=== PATIENT | male | born 1975 | race Asian ===

== ENCOUNTER 2017-01-09 06:41 | Emergency (ER) | payer OTHER ==
[2017-01-09 07:14] VITALS: TEMP 99.6; BMI 21.6
--- NOTE | 2017-01-09 07:16 | PDOC ---
Attending Attestation - Resident Resident Name: Martín Tai - HPI HPI: 01/09/17 08:49 pt presents to the ED complaining of generalized malaise, R hand and L calf pain. Febrile yesterday. - Physicial Exam PE: 01/09/17 09:00 Physical exam is completely unremarkable. No external signs of infection at sites of the patient's pain. - Medical Decision Making 01/09/17 09:50 Pt presents to the ED complaining of pain in his hand and leg and mild, pleuritic chest pain. Well appearing and afebrile in the ED today. Low risk for cardiac disease. Will check labs, give pain control and IV hydration and reassess.
[2017-01-09] MEDS ORDERED: KETOROLAC TROMETHAMINE 30 MG/1 ML VIAL IVPUSH ONE (07:43)
[2017-01-09] MEDS ORDERED: SODIUM CHLORIDE 0.9% 1000 ML INFUS.BAG IV ONE (07:43)
--- NOTE | 2017-01-09 07:43 | PDOC ---
History of Present Illness - General Chief Complaint: Chest Pain Stated Complaint: PAIN TO CHEST Time Seen by Provider: 01/09/17 07:11 History Source: Patient Exam Limitations: No Limitations - History of Present Illness Initial Comments: 01/09/17 07:40 The patient is 41M with a PMH of hypercholesterolemia who presents to the ED with pain in his L leg and R hand for 2 days. He also complains of chest pain since 3 pm yesterday. The chest pain is L sided, does not radiate, tender to palpation, not associated with diaphoresis or vomiting. His leg and hand pain were of sudden onset, and he describes it as a tight feeling, and painful to palpation. The patient has also been complaining of a fever last night at 100.7. He states he has taken motrin every 6 hours and feels slightly better. He has no sick contacts and has never experienced this before. He has no history of recent stasis, no cancer, and is a non-smoker. ROS+: nausea, fever, chills, headache, SOB ROS-: diaphoresis, vomiting, sick contacts, diarrhea, constipation, dysuria, abdominal pain, cough Allergies: Seasonal Surgeries: none Social: Does not smoke, drink, use recreational drugs Past History - Past Medical History Allergies/Adverse Reactions: Allergies Allergy/AdvReac Type Severity Reaction Status Date / Time No Allergy Information Allergy Verified 11/03/15 12:54 Available Home Medications: Ambulatory Orders NK [No Known Home Medication] 01/09/17 - Immunization History Immunization Up to Date: Yes - Psycho/Social/Smoking Cessation Hx Anxiety: No Suicidal Ideation: No Smoking History: Unknown if ever smoked Information on smoking cessation initiated: No Hx Alcohol Use: No Drug/Substance Use Hx: No Substance Use Type: None Review of Systems - Review of Systems Able to Perform ROS?: Yes Is the patient limited [place] proficient: No Constitutional: Yes: Chills, Fever. No: Diaphoresis Respiratory: Yes: Shortness of Breath. No: Cough, Productive cough Cardiac (ROS): Yes: Chest Pain. No: Palpitations ABD/GI: Yes: Nausea. No: Constipated, Diarrhea, Vomiting : No: Dysuria, Hematuria Integumentary: No: Lesions, Rash Neurological: Yes: Headache *Physical Exam - Vital Signs Last Vital Signs Temp Pulse Resp BP Pulse Ox 99.6 F 77 16 96/63 98 01/09/17 07:11 01/09/17 07:11 01/09/17 07:11 01/09/17 07:11 01/09/17 07:11 - Physical Exam General Appearance: Yes: Nourished, Appropriately Dressed, Mild Distress HEENT: negative: Scleral Icterus (R), Scleral Icterus (L) Neck: negative: Stridor Respiratory/Chest: positive: Chest Tender, Lungs Clear, Normal Breath Sounds. negative: Respiratory Distress, Accessory Muscle Use, Labored Respiration, Wheezing Cardiovascular: positive: Regular Rhythm, Regular Rate, S1, S2 Gastrointestinal/Abdominal: positive: Flat, Soft. negative: Tender, Tenderness Musculoskeletal: positive: Other (Lower L leg tenderness to palpation, non erythematous, non swollen) Integumentary: positive: Normal Color, Dry, Warm. negative: Petechiae, Swelling Heart Score/ECG Review - History History: Slightly suspicious - Risk Factors Risk Factors Heart Score: Yes Hx Hypercholesterolemia - ECG Intrepretation Rhythm: Regular Rhythm - [place]: Normal - ECG Impressions Normal ECG: Yes Non-specific ST Elevation: No ED Treatment Course - LABORATORY CBC & Chemistry Diagram: 01/09/17 07:33 01/09/17 07:33 Medical Decision Making - Medical Decision Making 01/09/17 07:59 Patient is a 41M with a PMH of hypercholesterolemia who presents to the ED with non-specific chest pain, L lower leg pain, and R hand pain. The differential includes an atypical ACS, pericarditis, musculoskeletal pain, and DVT. I ordered a CBC, CMP, EKG, and 1 set of troponins to r/o infection, electrolyte abnormality, and ACS. He PERC's out and has a very low probability of DVT/PE. His EKG showed normal sinus rhythm. I will await his labs and keep him updated. 01/09/17 08:57 Patient CBC and CMP WNL. Trop <0.02. Patient is updated and requests more time for pain medication to work. 01/09/17 12:14 Patient is still experiencing pain in his L chest. All labs WNL. CXR was read as questionable pna in L lung field. Attending and I reviewed the CXR and disagree with this reading. Patient was informed to return if symptoms worsen and take motrin for pain. *DC/Admit/Observation/Transfer Diagnosis at time of Disposition: Chest wall pain - Discharge Dispostion Disposition: HOME Condition at time of disposition: Stable - Attestations Physician Attestion: 01/09/17 08:01 I, Dr. Martín Tai, attest that this document has been prepared under my direction and personally reviewed by me in its entirety. I further attest, that it accurately reflects all work, treatment, procedures and medical decision -making performed by me.
[2017-01-09 08:23] LABS: MCH 21.8 pg (25.7-33.7); MEAN CELL VOLUME 67.9 fl (80-96); MEAN PLT VOLUME 10.4 fl (7.5-11.1); PLATELET COUNT 112 K/MM3 (134-434); RDW 14.9 % (11.9-15.9); WHITE BLOOD COUNT 6.9 K/mm3 (4.0-10.0)
[2017-01-09 08:49] LABS: ALBUMIN 3.8 g/dl (3.4-5.0); ANION GAP 7 (8-16); CALCIUM 8.8 mg/dL (8.5-10.1); CO2 26 mmol/L (21-32); CREATININE 0.9 mg/dL (0.7-1.3); GLUCOSE,RANDOM 95 mg/dL (74-106); SGOT/AST 34 U/L (15-37); SGPT/ALT 54 U/L (12-78); TROPONIN I < 0.02 ng/ml (0.00-0.05)
[2017-01-09] MEDS ORDERED: OXYCODONE/APAP 5/325MG COMBO TABLET PO ONE (08:49)
[2017-01-09] MEDS ORDERED: OXYCODONE/APAP 5/325MG COMBO TABLET ONE (08:49)
[2017-01-09 08:51] LABS: ALK PHOS 91 U/L (45-117); BILIRUBIN,TOTAL 0.4 mg/dL (0.2-1.0); TOT PROT 7.6 g/dl (6.4-8.2)
[2017-01-09 11:08] LABS: HYPOCHROMIA 2+; MICROCYTOSIS 1+
[2017-01-09 13:05] VITALS: BP 98/66; PULSE 76
--- NOTE | 2017-01-10 10:41 | EKG ---
Test Reason : Blood Pressure : / mmHG Vent. Rate : 078 BPM Atrial Rate : 078 BPM P-R Int : 122 ms QRS Dur : 082 ms QT Int : 346 ms P-R-T Axes : 052 034 019 degrees QTc Int : 394 ms NORMAL SINUS RHYTHM NORMAL ECG NO PREVIOUS ECGS AVAILABLE Confirmed by ANAHY ESTEBAN MD ([id number]) on 01/10/2017 10:41:21 AM Referred By: Confirmed By:ANAHY ESTEBAN MD
== END 2017-01-09 13:05 | disposition home or self-care (01) ==
LOC: JER 06:41
PROC: 3E0333Z Introduction of Anti-inflammatory into Peripheral Vein, Percutaneous Approach (ICD-10-PCS; principal; 2017-01-09)
DX: R07.89 Other chest pain (principal); E78.00 Pure hypercholesterolemia, unspecified
CPT/HCPCS: 36415; 71020-TC; 80053; 82550; 84484; 85027; 85651; 93005; 93010; 96374; 99281-25